=== PATIENT | male | born 1995 | race Caucasian/White ===

== ENCOUNTER 2019-06-28 14:21 | Emergency (ER) | payer SELFPAY ==
[~2019-06-28] VITALS: Ht 177.8 cm; Wt 61.4 kg
[2019-06-28] MEDS ORDERED: PERTUSS(ACELL),DIPH,TET VAC/PF 0.5 ML VIAL IM ONE (15:15)
[2019-06-28] MEDS ORDERED: BACITRACIN 0.9 GM PACKET OINTMENT TP ONE (15:15)
[2019-06-28] MEDS ORDERED: LIDOCAINE 1% 10 ML VIAL INJ ONE (15:15)
[2019-06-28 16:48] VITALS: BP 128/79
== END 2019-06-28 16:49 | disposition home or self-care (01) ==
LOC: EMS 14:22
DX: S61.411A Laceration without foreign body of right hand, initial encounter (principal); F12.90 Cannabis use, unspecified, uncomplicated; W26.0XXA Contact with knife, initial encounter; Y93.89 Activity, other specified; Y92.89 Other specified places as the place of occurrence of the external cause; Y99.8 Other external cause status
CPT/HCPCS: 12002; 90471; 90715; 99283; J3490

== ENCOUNTER 2019-07-05 08:42 | Emergency (ER) | payer SELFPAY ==
[~2019-07-05] VITALS: Ht 177.8 cm; Wt 59.1 kg
[2019-07-05 09:30] VITALS: BP 107/84
== END 2019-07-05 09:34 | disposition home or self-care (01) ==
LOC: EMS 08:43
DX: S61.411D Laceration without foreign body of right hand, subsequent encounter (principal); Z48.02 Encounter for removal of sutures; W26.0XXD Contact with knife, subsequent encounter